=== PATIENT | male | born 1985 | race Caucasian/White ===

== ENCOUNTER 2018-04-30 18:12 | Emergency (ER) | payer OTHER, SELFPAY ==
[2018-04-30 18:16] VITALS: BP 140/92; PULSE 62; RESP 20; TEMP 36.8; O2SAT 99; BMI 33.0
--- NOTE | 2018-04-30 20:12 | ED_ITS ---
HPI - Skin/Abscess/Foreign Bdy <JILLIAN Savage - Last Filed: 04/30/18 22:22> General Chief complaint: Skin/Abscess/Foreign Body Stated complaint: INFLAMMED, INGROWN HAIR Time Seen by Provider: 04/30/18 20:12 Source: patient Mode of arrival: ambulatory Limitations: no limitations History of Present Illness HPI narrative: 33-year-old healthy male here for complaint of having abscess to his groin area that he noticed over the last couple of days. He reported having increasing swelling and redness to that area over the last day. He denies any purulent drainage. He denies any fevers or chills. No trauma to the area. No other concerns or complaints at this time. MD complaint: abscess/boil Related Data Previous Rx's Medication Instructions Recorded sulfamethoxazole-trimethoprim 1 tab PO BID 7 Days #13 tab 04/30/18 [Bactrim DS] Review of Systems <JILLIAN Savage - Last Filed: 04/30/18 22:22> Constitutional Denies chills, Denies fever(s), Denies lethargy and Denies weakness Eyes Denies change in vision, Denies eye discharge, Denies irritation and Denies loss of vision ENT Ears, Nose, Mouth, and Throat: Denies change in voice, Denies neck pain and Denies sore throat Cardiovascular Denies chest pain, Denies irregular heart rhythm, Denies lightheadedness, Denies palpitations, Denies dyspnea, Denies dyspnea on exertion and Denies orthopnea Respiratory Denies cough, Denies dyspnea, Denies dyspnea on exertion and Denies wheezing Gastrointestinal Gastrointestinal: Denies abdominal pain, Denies change in bowel habits, Denies diarrhea, Denies nausea and Denies vomiting Genitourinary Denies hematuria, Denies flank pain, Denies urinary incontinence and Denies urinary urgency Musculoskeletal Denies neck pain Integumentary/Breasts Reports new lesions Neurologic Denies confusion, Denies loss of vision and Denies weakness Psychiatric Denies anxiety, Denies confusion, Denies depression, Denies homicidal ideation and Denies suicidal ideation Endocrine Denies palpitations Hematologic/Lymphatic Denies easy bruising Allergic/Immunologic Denies wheezing Exam <JILLIAN Savage Last Filed: 04/30/18 22:22> Initial Vital Signs Initial Vital Signs: Vital Signs Temperature 98.2 F 07/25/18 18:16 Pulse Rate 62 04/30/18 18:16 Respiratory Rate 20 04/30/18 18:16 Blood Pressure 140/92 H 04/30/18 18:16 Pulse Oximetry 99 04/30/18 18:16 Const General: cooperative and well developed Nutritional Appearance: well nourished Orientation: alert, awake, oriented x3 and not confused HENMT Mouth: oral mucosae normal and moist mucous membranes Eyes Conjunctivae: conjunctivae normal Sclera: sclerae normal Pupils: PERRL EOM: EOM intact bilaterally Resp Effort & Inspection: normal respiratory effort, able to speak in complete sentences, no respiratory distress and no use of accessory muscles Auscultation: clear to auscultation bilaterally, no rales, no rhonchi and no wheezes Cardio Rate: regular rate Rhythm: regular rhythm Heart Sounds: no click, no gallops, no murmurs and no rubs Skin Other: 1 cm raised erythematous lesion into the groin area with slight amount of surrounding erythema. Positive fluctuance. No open lesions Neuro General: alert, oriented x3, gait normal and no focal motor deficits Speech: speech normal <Evelyne Jones DO - Last Filed: 05/01/18 05:40> Initial Vital Signs Initial Vital Signs: Vital Signs Temperature 98.2 F 04/30/18 18:16 Pulse Rate 62 04/30/18 18:16 Respiratory Rate 20 04/30/18 18:16 Blood Pressure 140/92 H 04/30/18 18:16 Pulse Oximetry 99 04/30/18 18:16 Procedures <JILLIAN Savage - Last Filed: 04/30/18 22:22> Abscess I/D Site: other (Midline suprapubic area) Local Anesthetic: lidocaine 1% Amount of anesthesia used (mL): 1 Technique: needle aspiration Amount of fluid expressed (mL): 1 Irrigation: No Packing used?: none Course <JILLIAN Savage - Last Filed: 04/30/18 22:22> Orders Ordered: Discontinued Medications Trimethoprim/Sulfamethoxazole (Bactrim Ds) 1 tab PO NOW ONE Stop: 04/30/18 20:31 Last Admin: 04/30/18 20:42 Dose: 1 tab Vital Signs - 8 hr 04/30/18 18:16 04/30/18 20:42 Temperature 98.2 F Pulse Rate 62 73 Respiratory Rate 20 14 Blood Pressure 140/92 H Blood Pressure [Left Arm] 133/98 H Pulse Oximetry 99 99 <Evelyne Jones DO - Last Filed: 05/01/18 05:40> Orders Ordered: Discontinued Medications Trimethoprim/Sulfamethoxazole (Bactrim Ds) 1 tab PO NOW ONE Stop: 04/30/18 20:31 Last Admin: 04/30/18 20:42 Dose: 1 tab Vital Signs - 8 hr 04/30/18 18:16 04/30/18 20:42 Temperature 98.2 F Pulse Rate 62 73 Respiratory Rate 20 14 Blood Pressure 140/92 H Blood Pressure [Left Arm] 133/98 H Pulse Oximetry 99 99 MDM - Skin/Abscess/Foreign Bdy <JILLIAN Savage - Last Filed: 04/30/18 22:22> MDM Narrative Medical decision making narrative: Small abscess to the suprapubic region was incised with a 18 gauge needle. Small amount of purulent drainage was removed. He is placed on Septra DS to prevent further complications. [id number] Tylenol Motrin as needed for any discomfort. Follow up with primary care provider in the next couple of days for re-evaluation. For any worsening symptoms return to the emergency room. Discharge Plan Departure Patient Disposition: Home, Self-Care Clinical Impression: Abscess of groin Discharge Date/Time: 04/30/18 20:55 Interventions: ED Discharge Assessment Last Done: 04/30/18 20:47 Instructions: DI for Skin Abscess Activity Restrictions/Additional Instructions: Small abscess to the groin area was incised and drained today in the emergency room. Dress wound daily with bacitracin and dressing until healed. Antibiotic prescribed to prevent further complications use as directed. Use over-the- counter Tylenol or Motrin as needed for a discomfort. Follow up with her primary care provider in the next few days for re-evaluation. Return emergency room for any worsening symptoms. Prescriptions: New sulfamethoxazole-trimethoprim [Bactrim DS] 800-160 mg tablet 1 tab PO BID 7 Days Qty: 13 RF: 0 Referrals: [facility] [Provider Group] <Evelyne Jones DO - Last Filed: 05/01/18 05:40> Cosign ED Attending Cosignature Attestation: I was immediately available in the department for consultation. Documentation has been reviewed. I agree with assessment and plan.
[2018-04-30 20:42] VITALS: BP 133/98; PULSE 73; RESP 14; O2SAT 99
[2018-04-30] MEDS: SULFA/TRIMETH 800/160 (DS) TABLET 1 TAB PO (20:42)
--- NOTE | 2018-04-30 20:46 | PC.NURSE ---
Futher assessment deferred to Colten Ferrara
== END 2018-04-30 20:55 | disposition home or self-care (01) ==
PROVIDERS: Emergency Provider Nurse Practitioner Family
DX: L02.214 Cutaneous abscess of groin (principal)
CPT/HCPCS: 10060; 99282; 99283